=== PATIENT | female | born 1960 | race Caucasian/White ===

== ENCOUNTER → 2016-11-19 | Outpatient (CLI) | payer BC ==
[~2016-11-19] MED LIST: ALENDRONATE SOD40 MG PO; CLARITIN10 M2 PO; VITAMIN C500 M1 PO; VITAMIN E200 UNIT PO
--- NOTE | 2016-11-19 12:04 | DIAGNOSTIC IMAGING REPORT ---
PROCEDURE: MG BILATERAL SCREENING W/CAD INDICATION: SCREENING TECHNIQUE: Bilateral CC and MLO digital views. COMPARISON: Compared to 10/30/2015. FINDINGS: Computer-aided detection applied. Moderately dense. No change. IMPRESSION: 1. Negative mammogram RESULT CODE: 1- Negative. A. A negative report should not delay biopsy if a dominant or clinically suspicious mass is present. 10-15% of cancers are not identified by x-ray. B. A negative report may reinforce clinical impression. C. Adenosis and dense breasts may obscure an underlying neoplasm. D. False positive reports average 6-10%. E.. A yearly screening mammogram is recommended. A reminder letter will be scheduled.
== END ==
LOC: MAM SRH 08:46
DX: Z12.31 Encounter for screening mammogram for malignant neoplasm of breast (principal)

== ENCOUNTER 2017-04-05 10:23 | Outpatient (CLI) | payer BC ==
--- NOTE | 2017-04-05 13:22 | DIAGNOSTIC IMAGING REPORT ---
PROCEDURE: DEXA BONE DENSITY STUDY CLINICAL INDICATION: OSTEOPOROSIS COMPARISON: DEXA scan 09/30/2014. FINDINGS: LUMBAR SPINE: Bone mineral density 0.685, T-score -3.3, osteoporosis (previously bone mineral density 0.556, T-score -4.5, 23.4% bone mineral density increase). LEFT HIP: Bone mineral density 0.751, T-score -1.6, osteopenia (bone mineral density 0.784, T-score -1.3, 4.2% bone mineral density loss). LEFT FEMORAL NECK: Bone mineral density 0.544, T-score -2.7, osteoporosis (previously bone mineral density 0.499, T-score -3.2, 9.1% bone mineral density increase). (T score greater or equal to -1.0 to: NORMAL) (T score from -1.1 to -2.4: OSTEOPENIA) (T score ess than or equal to -2.5: OSTEOPOROSIS) IMPRESSION: 1. Lumbar spine osteoporosis with bone mineral density increase 2. Left hip osteoporosis with femoral neck 9.1% bone mineral density increase.
== END 2017-04-05 23:00 ==
LOC: XR SRH 10:23
DX: M81.0 Age-related osteoporosis without current pathological fracture (principal)